=== PATIENT | female | born 1945 | race Caucasian/White ===

== ENCOUNTER 2017-04-17 04:26 | Inpatient (IN) | payer OTHER, MEDICARE ==
[~2017-04-17] VITALS: Ht 144.8 cm; Wt 48.1 kg
[~2017-04-17 04:26] MED LIST: ASPIRIN EC81 M1 PO; ASPIRIN325 M2 PO; ATORVASTATIN CA10 M1 PO; BYSTOLIC10 M1 PO; COLACE100 M1 PO; COZAAR50 M1 PO; DAILY MULTIPLE1 EACH PO; DILAUDID2 M1 PO; FOLBIC TABLET1 EACH PO; MIRALAX17 G1 PO; OMEPRAZOLE20 M2 PO; PROLIA60 MG/1 ML; VITAMIN D1000 UNIT PO
[2017-04-17] MEDS ORDERED: DILAUDID2 M1 PO (13:12)
[2017-04-17] MEDS ORDERED: PRILOSEC OTC20 M1 PO (13:12)
[2017-04-17] MEDS ORDERED: MIRALAX17 G1 PO (13:12)
[2017-04-17] MEDS ORDERED: COLACE100 M1 PO (13:12)
[2017-04-17] MEDS ORDERED: ASPIRIN EC325 M2 PO (13:12)
--- NOTE | 2017-04-17 13:17 | Patient Discharge Instructions ---
Discharge Instructions General Discharge Information You were seen/treated for: Left hip pain s/p hip replacement You had these procedures: Left hip conversion to THR Watch for these problems: Increasing pain despite the use of pain medication Increasing redness, warmth or swelling Drainage of any type from incision Inability to bear weight on operative leg Persistent nausea and vomiting Fever greater than 101.5 degrees Do not soak the wound: Yes No bath, but you may shower: Yes Other wound care: Please keep wound clean and dry. No ointments or lotions of any type on or near incision at any time. No exceptions. Your dressing will be changed by your nurse on the second day after your surgery. Daily dry dressing changes are recommended each day thereafter. Do not soak your wound in a bath at any time until otherwise indicated by your surgeon. You may shower, please dry wound immediately after shower with a clean towel. Special Instructions: Aspirin: You are taking this medication to help prevent blood clot formation. Please take with food to protect your stomach lining. Please take as directed. Constipation: Pain medication can cause constipation. Dr. Deleon has recommended that you take Colace and miralax each day. You may discontinue this medication if you develop loose stool or diarrhea. If you wish to continue this medication, it is available over the counter. If you are unable to move your bowels after several days, if you are unable to pass gas and are developing bloating, nausea, or vomiting as a result, please contact your doctor. Diet Continue normal diet: Yes Recommended Diet: Regular Activity Full Activity/No Limits: No Activity Self Limited: Yes Pounds, do NOT lift more than: 10 Acute Coronary Syndrome Inclusion Criteria At DC or during hospital stay patient has or had the following: ACS DIAGNOSIS No Discharge Core Measures Meds if any: Prescribed or Continued at Discharge Meds if any: NOT Prescribed or Continued at Discharge Congestive Heart Failure Inclusion Criteria At DC or during hospital stay patient has or had the following: CHF DIAGNOSIS No Discharge Core Measures Meds if any: Prescribed or Continued at Discharge Meds if any: NOT Prescribed or Continued at Discharge Cerebrovascular accident Inclusion Criteria At DC or during hospital stay patient has or had the following: CVA/TIA Diagnosis No Discharge Core Measures Meds if any: Prescribed or Continued at Discharge Meds if any: NOT Prescribed or Continued at Discharge Venous thromboembolism Inclusion Criteria VTE Diagnosis No VTE Type NONE VTE Confirmed by (Test) NONE Discharge Core Measures - Per Current guidelines, there needs to be overlap - treatment for the first 5 days of Warfarin therapy. - If discharged on Warfarin prior to 5 days of - overlap therapy, the patient will need to be - assessed for post discharge needs including - *Post discharge parental anticoagulation - *Warfarin and/or parental anticoagulation education - *Follow up date to check INR post discharge At least 5 days overlap therapy as Inpatient No Meds if any: Prescribed or Continued at Discharge Note: Overlap Therapy is Warfarin and Anticoagulant Meds if any: NOT Prescribed or Continued at Discharge
--- NOTE | 2017-04-17 13:19 | Surgical Discharge Summary ---
Visit Information Visit Dates Admission Date: 04/17/17 Discharge Date: 04/20/17 History of Present Illness Chief Complaint: Left hip pain Medical History Neurological: TIA EENT: NONE Cardiovascular: hypertension, hyperlipidemia Respiratory: NONE Gastrointestinal: NONE Hepatic: NONE Renal: NONE Musculoskeletal: ARTHRITIS Psychiatric: NONE Endocrine: NONE Blood Disorders: NONE Cancer(s): LUNG CA EDGING CATCHER/Reproductive: NONE History of MRSA: No History of VRE: No History of CDIFF: No Surgical History Pertinent Surgical History: REVERSE COLOSTOMY Psychosocial History Who Do You Live With? Spouse What is Your Primary Language? Croatian Review of Systems: See H&P Hospital Course Course Attending Physician: Tye Deleon MD Primary Care Physician: Angelito KNIGHT,[facility] Course: Patient was admitted to the hospital for a total joint replacement revision. The procedure was tolerated well and patient was transferred to a general surgical floor. Diet was advanced and tolerated, and the patient voided spontaneously. The patient was evaluated and treated by physical therapy. At the time of hospital discharge, the vital signs were stable, neurovascular status was intact, and pain was controlled with the use of oral pain medications. Allergies: Coded Allergies: No Known Allergies (04/12/17) Disposition Summary Disposition Principal Diagnosis: Left hip pain Additional Diagnosis: None Discharge Disposition: home health services Discharge Instructions General Discharge Information Code Status: Full Code Patient's Diet: Regular, advance as tolerated Patient's Activity: WBAT Follow-Up Instructions/Appts: Follow up with Dr. Deleon in 6 weeks from date of surgery. Please call his office to arrange and/or confirm this appointment. Medications at Discharge Discharge Medications: Continue taking these medications: Nebivolol HCl (Bystolic) 10 MG TABLET 1 Tablet ORAL DAILY Comments: Last Taken:01/29/17 Time:1000 NEXT DOSE TOMORROW Losartan Potassium (Cozaar) 50 MG TABLET 1 Tablet ORAL DAILY Comments: Last Taken:01/29/17 Time:1000 NEXT DOSE TOMORROW Atorvastatin Calcium (Atorvastatin Calcium) 10 MG TABLET 1 Tablet ORAL DAILY Comments: Last Taken:01/28/17 Time:1700 NEXT DOSE TONIGHT Cyanocobalamin/FA/Pyridoxine (Folbic Tablet) 2 MG-2.5 MG-25 MG TABLET 1 Tablet ORAL DAILY Comments: NOT GIVEN IN HOSPITAL NEXT DOSE TODAY Multivitamin (Daily Multiple Vitamin) 1 EACH TABLET 1 Tablet ORAL DAILY Cholecalciferol (Vitamin D3) (Vitamin D) 1,000 UNIT TABLET 1 Tablet ORAL DAILY Start taking the following new medications: Hydrocodone/Acetaminophen (Hydrocodon-Acetaminophen 5-325) 5 MG-325 MG TABLET 1-2 Tablet ORAL EVERY 4 HOURS NEEDED as needed for PAIN SCALE Qty = 36 No Refills Aspirin (Ecotrin*) 325 MG TABLET.DR 1 Tablet ORAL TWICE DAILY Qty = 60 No Refills Polyethylene Glycol 3350 (Miralax) 17 GRAM POWD.PACK 1 Packet ORAL DAILY Qty = 7 No Refills Instructions: dissolve in water, DISCONTINUE USE IF YOU DEVELOP LOOSE STOOL OR DIARRHEA Docusate Sodium (Colace) 100 MG CAPSULE 1 Capsule ORAL TWICE DAILY Qty = 14 No Refills Instructions: DISCONTINUE USE IF YOU DEVELOP LOOSE STOOL OR DIARRHEA Omeprazole Magnesium (Prilosec Otc) 20 MG TABLET.DR 1 Tablet ORAL DAILY Qty = 30 No Refills
--- NOTE | 2017-04-17 14:19 | Operative Report ---
Operative/Inv Procedure Report Surgery Date: 04/17/17 Name of Procedure: Left total hip conversion Pre-Operative Diagnosis: Left hip spacer Post-Operative Diagnosis: Same Estimated Blood Loss: 300 Surgeon/Rendering Equipment Tender: Pancho KNIGHT,Tye Bejarano Anesthesia: block Operative/Procedure Note Note: Description of procedure: The patient was taken to the operating room and positively identified. After induction of spinal anesthesia and administration of appropriate preoperative antibiotics she was positioned supine on the operating room table and all bony prominences were well-padded. The left lower extremity was then prepped and draped in usual sterile fashion. Utilizing the previous incision a direct anterior approach was made to the left hip. This was carried down through skin and subcutaneous tissue to the level of the fascia. Meticulous hemostasis was maintained with Bovie cautery. All loosely placed suture material was removed. The interval between the sartorius the tensor fascia chance muscle was entered bluntly. Scar tissue was resected anteriorly laterally and medially allowing dislocation of the spacer. The head was then disimpacted from the spacer trunnion. Exposure continued until the femur could be delivered. The remainder of the spacer was then removed without difficulty. At this point the articular space was irrigated with multiple liters of sterile saline. Attention was then turned to the acetabulum. After appropriate placement of retractors the acetabulum was exposed. Soft tissue was curetted free from the acetabular bed. The acetabulum was then sequentially reamed to accept a 54 mm Vi Trident tritanium hemispherical shell. 2 screws were used for supplemental fixation. The cup was then fit with a 36 mm 0 Trident X3 polyethylene insert. Attention was then returned to the femur. Curettings from the canal were sent for micro-biologic analysis. A Dall-Miles cable was placed proximally prophylactically. The hip was then sequentially reamed and broached to accept a size 8x14 Confucianism MERRILL revision stem. This was trialed for leg length and stability. The trial component was removed and the final component was impacted into place. The trunnion was cleaned and fit with a 36 mm -5 Biolox delta ceramic femoral head. The hip was reduced and put through a 40 motion found to be quite stable. The interarticular space was copiously irrigated with sterile saline. The pericapsular soft tissue were infiltrated with Marcaine. The fascial layer was closed with interrupted #1 Vicryl sutures. The skin was reapproximated with interrupted 2-0 Vicryl and closed with tess. A sterile dressing was applied and the patient was awakened and taken to the recovery room in satisfactory condition.
--- NOTE | 2017-04-17 16:20 | RADIOLOGY REPORT ---
EXAMINATION: XR HIP, LEFT CLINICAL INFORMATION: Left hip surgery COMPARISON: Previous x-ray 01/28/2017 TECHNIQUE: AP and shoot through lateral of the left hip. FINDINGS: There is a left hip replacement. There are 2 screws seen in the acetabular component. There is a longstem femoral component and cerclage wire. Left acetabular fracture is still evident. There is interval increase in periosteal reaction adjacent to the fracture. No other fracture is seen. Left hip alignment is normal. There are post operative changes to the soft tissues. There is heterotopic soft tissue ossification adjacent to the left greater trochanter. IMPRESSION: Satisfactory appearance of new left hip replacement. Left acetabular fracture line is still seen with increasing bony callus formation.
--- NOTE | 2017-04-17 16:30 | Admission Core Measures ---
Acute Coronary Syndrome (CM) ACS Core Measures Acute Coronary Syndrome Diagnosis No Congestive Heart Failure (NEW) CHF Core Measures Congestive Heart Failure Diagnosis No Cerebrovascular Accident (NEW) CVA Core Measures CVA/TIA Diagnosis No Venous Thromboembolism VTE Core Sabino (View Protocol) VTE Risk Factors Surgery No Mechanical VTE Prophylaxis d/t N/A MechProphylax Ordered No VTE Pharm Prophylaxis d/t NA PharmProphylax ordered Problem List As ranked by this Provider includes Assessment & Plan 1. Status post total hip replacement, left HOME MEDS Home Med List Aspirin (Ecotrin*) 325 MG TABLET.DR 1 TAB PO BID ANTICOAGULATION Atorvastatin Calcium 10 MG TABLET 1 TAB PO DAILY CHOLESTEROL (Reported) Cholecalciferol (Vitamin D3) (Vitamin D) 1,000 UNIT TABLET 1 TAB PO DAILY SUPPLEMENT (Reported) Cyanocobalamin/FA/Pyridoxine (Folbic Tablet) 2 MG-2.5 MG-25 MG TABLET 1 TAB PO DAILY NEUROPATHY (Reported) Docusate Sodium (Colace) 100 MG CAPSULE 1 CAP PO BID CONSITPATION Hydromorphone HCl (Dilaudid) 2 MG TABLET 1-2 TAB PO Q4-6 PRN PRN PAIN Losartan Potassium (Cozaar) 50 MG TABLET 1 TAB PO DAILY HTN (Reported) Multivitamin (Daily Multiple Vitamin) 1 EACH TABLET 1 TAB PO DAILY SUPPLEMENT (Reported) Nebivolol HCl (Bystolic) 10 MG TABLET 1 TAB PO DAILY HTN (Reported) Omeprazole Magnesium (Prilosec Otc) 20 MG TABLET. 1 TAB PO DAILY GI PROTECTION Polyethylene Glycol 3350 (Miralax) 17 GRAM POWD.PACK 1 PAC PO DAILY CONSTIPATION
[2017-04-17 19:00] VITALS: BP 108/60
[2017-04-17 22:58] VITALS: BP 116/60
[2017-04-18 03:00] VITALS: BP 110/56
[2017-04-18 06:31] VITALS: BP 114/80
[2017-04-18 10:00] LABS: ABSOLUTE BASOPHIL COUNT 0 /CUMM (0.0-0.2); ABSOLUTE EOSINOPHIL COUNT 0.1 /CUMM (0.0-0.7); ABSOLUTE GRANULOCYTE CT 5.2 /CUMM (1.4-6.5); ABSOLUTE LYMPH COUNT 1.1 /CUMM (1.2-3.4); ABSOLUTE MONOCYTE COUNT 0.6 /CUMM (0.10-0.60); BASOPHIL % 0.6 % (0.0-2.0); EOSINOPHIL % 1.6 % (0-5); GRANULOCYTE % 73.7 % (42.2-75.2); HEMATOCRIT 20.6 % (37-47); MEAN CORPUSCULAR HGB 28.9 PG (27.0-31.0); MEAN CORPUSCULAR HGB CONC 33.7 G/DL (33.0-37.0); MEAN CORPUSCULAR VOLUME 85.8 FL (81.0-99.0); MEAN PLATELET VOLUME 6.1 FL (7.4-10.4); PLATELET COUNT 496 /CUMM (130-400); RBC DISTRIBUTION WIDTH 15.8 % (11.5-14.5)
--- NOTE | 2017-04-18 10:50 | PN- Orthopedic ---
Subjective Subjective: No acute overnight events reported. Pain controlled. Denies chest pain, shortness of breath, headache or dizziness. Denies nausea and vomitting. States that she does not have a strong appetite. Objective Vital Signs and I&Os Vital Signs Date Time Temp Pulse Resp B/P B/P Pulse O2 O2 Flow FiO2 Mean Ox Delivery Rate 04/18 1417 98.2 74 20 120/70 95 04/18 1117 97.7 82 18 130/82 100 04/18 0957 97.7 83 20 114/80 04/18 0957 97.7 83 20 114/80 04/18 0631 97.7 83 20 114/80 99 Room Air 04/18 0300 98.2 87 20 110/56 99 Room Air 04/17 2258 97.5 77 20 116/60 100 Room Air 04/17 1900 95.8 78 18 108/60 100 Room Air Intake & Output 04/18 1600 04/18 0800 04/18 0000 04/17 1600 04/17 0800 04/17 0000 Intake Total 1000 550 Output Total 300 675 90 Balance -300 325 460 Intake, IV 600 450 Intake, Oral 400 100 Number 0 Bowel Movements Output, 75 90 Drainage Output, Urine 300 600 Patient 106 lb Weight Weight Reported by Patient Measurement Method Physical Exam: General: Alert and oriented x3, no acute distress Cardiac: RRR, s1s2 Pulm: CTA bilaterally ABD: Non-tender, non-distended Extremities: Moves all extremities, distal sensation intact. Skin warm and well perfused. DP pulses palpable bilaterally. Bilateral calves soft and non- tender. Dressing dry and intact. Thigh compartment soft. Hemovac holding suction, minimal drainage noted. Assessment/Plan Assessment/Plan This is a 71 year old female, POD 1, s/p left hip conversion from abx spacer to total hip replacement. Labs: Anemia, likely periop blood loss, transfuse 2 units, recheck this evening Hyponatremia: Will recheck lytes this evening, ?nacl supplement Drain: DC this afternoon Diet: As tolerated DVT ppx: ASA 325 bid Activity: OOB, wbat ABX ppx, completed Core Measures Venous Thromboembolism VTE Risk Factors Surgery No Mechanical VTE Prophylaxis d/t N/A MechProphylax Ordered No VTE Pharm Prophylaxis d/t NA PharmProphylax ordered
[2017-04-18 11:17] VITALS: BP 130/82
[2017-04-18 14:17] VITALS: BP 120/70
[2017-04-18 19:00] VITALS: BP 102/60
[2017-04-18 22:49] LABS: ABSOLUTE BASOPHIL COUNT 0 /CUMM (0.0-0.2); ABSOLUTE EOSINOPHIL COUNT 0.1 /CUMM (0.0-0.7); ABSOLUTE GRANULOCYTE CT 5.4 /CUMM (1.4-6.5); ABSOLUTE MONOCYTE COUNT 0.6 /CUMM (0.10-0.60); BASOPHIL % 0.5 % (0.0-2.0); EOSINOPHIL % 1.6 % (0-5); GRANULOCYTE % 75.3 % (42.2-75.2); MEAN CORPUSCULAR HGB 29.6 PG (27.0-31.0); MEAN CORPUSCULAR HGB CONC 33.5 G/DL (33.0-37.0); MEAN CORPUSCULAR VOLUME 88.2 FL (81.0-99.0); MEAN PLATELET VOLUME 6.3 FL (7.4-10.4); PLATELET COUNT 394 /CUMM (130-400); RBC DISTRIBUTION WIDTH 15.4 % (11.5-14.5); WHITE BLOOD CELL COUNT 7.2 /CUMM (4.8-10.8)
[2017-04-18 22:54] LABS: HEMATOCRIT 31.5 % (37-47); RED BLOOD CELL CT 3.57 /CUMM (4.20-5.40)
[2017-04-18 23:12] VITALS: BP 100/60
[2017-04-19 03:08] VITALS: BP 90/40
--- NOTE | 2017-04-19 07:54 | PN- Orthopedic ---
Subjective Subjective: Trouble moving this morning, increased pain, no weakness, no numbness, no fever or flulike illness, no acute events overnight Objective Vital Signs and I&Os Vital Signs Date Time Temp Pulse Resp B/P B/P Pulse O2 O2 Flow FiO2 Mean Ox Delivery Rate 04/19 0308 98.9 86 20 90/40 99 Room Air 04/18 2312 98.1 77 20 100/60 96 Room Air 04/18 1900 98.7 73 20 102/60 97 Room Air 04/18 1417 98.2 74 20 120/70 95 04/18 1117 97.7 82 18 130/82 100 04/18 0957 97.7 83 20 114/80 04/18 0957 97.7 83 20 114/80 Intake & Output 04/19 0804/19 0000 04/18 1600 04/18 0000 04/17 1600 Intake Total 164 432 7077 550 Output Total 600 750 300 675 90 Balance -100 -270 -300 325 460 Intake, IV 500 600 450 Intake, Oral 480 400 100 Number 0 Bowel Movements Output, 75 90 Drainage Output, Urine 600 750 300 600 Patient 106 lb Weight Weight Reported by Patient Measurement Method Physical Exam: Well-developed well-nourished no apparent distress. HEENT: Atraumatic, extraocular motion intact Neck: Supple, no lymphadenopathy Respiratory: No respiratory distress Extremities: No edema Left lower extremity hip dressing in place, Dressing clean dry and intact with minimal bloody staining, dressing changed, dry sterile dressing applied Incision without erythema Mild thigh swelling No signs of infection. No shortening or rotation Hip range of motion is limited and without unexpected pain Neurovascularly intact distally Bilateral calves are supple, nontender. Neuro: Alert and oriented x3 Psych: Mood affect normal, normal memory normal judgment. Skin: Warm and dry, no rash on exposed skin Results Last 48 Hours of Labs: Laboratory Tests 04/18 04/18 2121 0832 Chemistry Sodium (137 - 145 mmol/L) 129 L 127 L Potassium (3.5 - 5.1 mmol/L) 4.3 3.8 Chloride (98 - 107 mmol/L) 96 L 94 L Carbon Dioxide (22 - 30 mmol/L) 25 23 Anion Gap (5 - 16) 8 10 BUN (7 - 17 mg/dL) 6 L 5 L Creatinine (0.5 - 1.0 mg/dL) 0.4 L 0.4 L Estimated GFR (>60 ml/min) > 60 > 60 BUN/Creatinine Ratio (7 - 25 %) 15.0 12.5 Hematology CBC w Diff NO MAN DIFF REQ NO MAN DIFF REQ WBC (4.8 - 10.8 /CUMM) 7.2 7.0 RBC (4.20 - 5.40 /CUMM) 3.57 L 2.40 L Hgb (12.0 - 16.0 G/DL) 10.6 L 6.9 *L Hct (37 - 47 %) 31.5 L 20.6 L MCV (81.0 - 99.0 FL) 88.2 85.8 MCH (27.0 - 31.0 PG) 29.6 28.9 RDW (11.5 - 14.5 %) 15.4 H 15.8 H Plt Count (130 - 400 /CUMM) 394 496 H MPV (7.4 - 10.4 FL) 6.3 L 6.1 L Gran % (42.2 - 75.2 %) 75.3 H 73.7 Lymphocytes % (20.5 - 51.1 %) 14.2 L 15.9 L Monocytes % (1.7 - 9.3 %) 8.4 8.2 Eosinophils % (0 - 5 %) 1.6 1.6 Basophils % (0.0 - 2.0 %) 0.5 0.6 Absolute Granulocytes (1.4 - 6.5 /CUMM) 5.4 5.2 Absolute Lymphocytes (1.2 - 3.4 /CUMM) 1.0 L 1.1 L Absolute Monocytes (0.10 - 0.60 /CUMM) 0.6 0.6 Absolute Eosinophils (0.0 - 0.7 /CUMM) 0.1 0.1 Absolute Basophils (0.0 - 0.2 /CUMM) 0 0 PUBS MCHC (33.0 - 37.0 G/DL) 33.5 33.7 Assessment/Plan Assessment/Plan This is a 71 year old female, POD 2 s/p left hip conversion from abx spacer to total hip replacement. Labs: Anemia, likely periop blood loss, status post transfusion of 2 units, responded well and is asymptomatic Hyponatremia: Will recheck lytes this a.m., improved last evening Dressing changed today Diet: As tolerated DVT ppx: ASA 325 bid Activity: OOB, wbat ABX ppx, completed Continue physical therapy, DC home with VNA services either this afternoon or tomorrow depending on how patient does Core Measures Venous Thromboembolism VTE Risk Factors Surgery No Mechanical VTE Prophylaxis d/t N/A MechProphylax Ordered No VTE Pharm Prophylaxis d/t NA PharmProphylax ordered
[2017-04-19 08:25] VITALS: BP 130/70
[2017-04-19 11:40] VITALS: BP 120/68
[2017-04-19 14:27] VITALS: BP 120/68
[2017-04-19 23:28] VITALS: BP 100/62
[2017-04-20 06:45] VITALS: BP 126/64
[2017-04-20] MEDS ORDERED: HYDROCODON-ACE1 EAC2 PO (09:36)
--- NOTE | 2017-04-20 09:36 | PN- Orthopedic ---
Subjective Subjective: Pain is controlled, patient doing better today, no fever no flulike illness Objective Vital Signs and I&Os Vital Signs Date Time Temp Pulse Resp B/P B/P Pulse O2 O2 Flow FiO2 Mean Ox Delivery Rate 04/20 0645 98.0 80 16 126/64 99 Room Air 04/19 2328 98.3 88 20 100/62 96 04/19 1427 98.2 68 20 120/68 95 04/19 1140 98.2 84 18 120/68 99 04/19 1101 98.8 91 20 130/70 Intake & Output 04/20 1600 04/20 0800 04/20 0000 04/19 1600 04/19 0800 04/19 0000 Intake Total 240 400 500 480 Output Total 800 600 750 Balance 240 -400 -100 -270 Intake, IV 500 Intake, Oral 240 400 480 Output, Urine 800 600 750 Physical Exam: Well-developed well-nourished no apparent distress. HEENT: Atraumatic, extraocular motion intact Neck: Supple, no lymphadenopathy Respiratory: No respiratory distress Extremities: No edema Left lower extremity hip dressing in place, Dressing clean dry and intact Mild thigh swelling No signs of infection. No shortening or rotation Hip range of motion is limited and without unexpected pain Neurovascularly intact distally Bilateral calves are supple, nontender. Neuro: Alert and oriented x3 Psych: Mood affect normal, normal memory normal judgment. Skin: Warm and dry, no rash on exposed skin Results Last 48 Hours of Labs: Laboratory Tests 04/19 04/18 0835 2121 Chemistry Sodium (137 - 145 mmol/L) 130 L 129 L Potassium (3.5 - 5.1 mmol/L) 4.3 4.3 Chloride (98 - 107 mmol/L) 95 L 96 L Carbon Dioxide (22 - 30 mmol/L) 25 25 Anion Gap (5 - 16) 9 8 BUN (7 - 17 mg/dL) 5 L 6 L Creatinine (0.5 - 1.0 mg/dL) 0.4 L 0.4 L Estimated GFR (>60 ml/min) > 60 > 60 BUN/Creatinine Ratio (7 - 25 %) 12.5 15.0 Hematology CBC w Diff NO MAN DIFF REQ WBC (4.8 - 10.8 /CUMM) 7.2 RBC (4.20 - 5.40 /CUMM) 3.57 L Hgb (12.0 - 16.0 G/DL) 10.6 L Hct (37 - 47 %) 31.5 L MCV (81.0 - 99.0 FL) 88.2 MCH (27.0 - 31.0 PG) 29.6 RDW (11.5 - 14.5 %) 15.4 H Plt Count (130 - 400 /CUMM) 394 MPV (7.4 - 10.4 FL) 6.3 L Gran % (42.2 - 75.2 %) 75.3 H Lymphocytes % (20.5 - 51.1 %) 14.2 L Monocytes % (1.7 - 9.3 %) 8.4 Eosinophils % (0 - 5 %) 1.6 Basophils % (0.0 - 2.0 %) 0.5 Absolute Granulocytes (1.4 - 6.5 /CUMM) 5.4 Absolute Lymphocytes (1.2 - 3.4 /CUMM) 1.0 L Absolute Monocytes (0.10 - 0.60 /CUMM) 0.6 Absolute Eosinophils (0.0 - 0.7 /CUMM) 0.1 Absolute Basophils (0.0 - 0.2 /CUMM) 0 PUBS MCHC (33.0 - 37.0 G/DL) 33.5 Assessment/Plan Assessment/Plan This is a 71 year old female, POD 3 s/p left hip conversion from abx spacer to total hip replacement. Symptomatic anemia resolved Hyponatremia: Improved DVT ppx: ASA 325 bid Activity: OOB, wbat DC home with VNA services today Core Measures Venous Thromboembolism VTE Risk Factors Surgery No Mechanical VTE Prophylaxis d/t N/A MechProphylax Ordered No VTE Pharm Prophylaxis d/t NA PharmProphylax ordered
[2017-04-20 10:14] VITALS: BP 126/64
== END 2017-04-20 12:56 | disposition home health service (06) | DRG 467 ==
LOC: SDA 04:26 → CANRESERV 16:31 → ENRESERV 16:31 → ENTRNSPT 17:50 → EDTRNSPT 17:52 → EDTRNSPTSTS 17:52 → 2NA 18:00 → CMPTRNSPT 18:14 → ENPENDDIS 04-20 10:10 → 2NA 04-20 12:56
PROVIDERS: Nurse Practitioner
PROC: 0SRB04A Replacement of Left Hip Joint with Ceramic on Polyethylene Synthetic Substitute, Uncemented, Open Approach (ICD-10-PCS; principal; 2017-04-17)
PROC: 0SPB08Z Removal of Spacer from Left Hip Joint, Open Approach (ICD-10-PCS; principal; 2017-04-17)
PROC: 30233N1 Transfusion of Nonautologous Red Blood Cells into Peripheral Vein, Percutaneous Approach (ICD-10-PCS; 2017-04-18)
DX: Z47.32 Aftercare following explantation of hip joint prosthesis (principal); E87.1 Hypo-osmolality and hyponatremia; D62 Acute posthemorrhagic anemia; G62.9 Polyneuropathy, unspecified; I10 Essential (primary) hypertension; Z85.6 Personal history of leukemia; Z86.73 Personal history of transient ischemic attack (TIA), and cerebral infarction without residual deficits
CPT/HCPCS: 2NAP; 87070; 87075; 36415; 73502-LT; 82436; 86920; 87086; 97110-GO; 97116-GO; 97161-GP; 97530-GO; J0131; J0690; J0735; J2550; J3490; J7040; J7042; P9016